=== PATIENT | male | born 1980 | race Caucasian/White ===

== ENCOUNTER 2016-11-22 10:28 | Emergency (ER) | payer SELFPAY ==
[~2016-11-22] VITALS: Ht 180.3 cm; Wt 75.0 kg
[~2016-11-22 10:28] MED LIST: IBUP-238 PO; Z.0.NO CURRENT MEDS
[2016-11-22 10:30] VITALS: BP 195/82; PULSE 101; RESP 22; TEMP 98; O2SAT 98
--- NOTE | 2016-11-22 11:07 | PD ---
Physical Exam Time Seen by Provider: 11:06 Narrative 35 y/o male here with 2 days left testicle pain, swelling. Vital signs reviewed. Seen at triage desk. Awaiting bed placement. Data Data Last Documented VS Vital Signs Date Time Temp Pulse Resp B/P Pulse Ox O2 Delivery O2 Flow Rate FiO2 11/22/16 10:30 98.0 101 22 195/82 98 MDM Medical Record Reviewed: Yes Supervised Visit with ODELL: No Anthony Tinsley Nov 22, 2016 11:06
[2016-11-22] MEDS ORDERED: oxyCODONE/ACETAMINOPHEN 5 MG/325 MG TAB PO ONE (13:45)
[2016-11-22] MEDS ORDERED: ONDANSETRON ODT 4 MG TAB PO/SL ONE (13:45)
--- NOTE | 2016-11-22 13:56 | PD ---
HPI Chief Complaint: Complaint Time Seen by Provider: 13:44 Travel History International Travel<30 days: No Contact w/Intl Traveler<30days: No Traveled to known affect area: No History of Present Illness HPI 35 YO male presents to the ED for evaluation of two day history of left sided scrotal pain. Patient states the pain was mild yesterday evening, worsened today and accompanied by redness and swelling of the scrotum. Patient states that the pain radiates in the abdomen. No relieving or exacerbating factors reported. He denies fever, chills, nausea, vomiting, penile discharge, dysuria , back pain, acute injury. Denies history of testicular torsion. States that he has not been sexually active in approximately one year. No treatment at home. PFSH Past Medical History Diminished Hearing: No Immunizations Current: Yes Past Surgical History Other Surgery: Yes (NASAL SURG- RIGHT HAND- LEFT FOOT) Social History Alcohol Use: Yes (2-12 PACK A WEEK) Tobacco Use: Yes (1 PACK A DAY FOR 16 YEARS) Substance Use: No Allergies-Medications (Allergen,Severity, Reaction): Coded Allergies: No Known Allergies (Verified , 11/22/16) Reported Meds & Prescriptions Reported Meds & Active Scripts Active Tramadol (Tramadol HCl) 50 Mg Tab 50 Mg PO Q6H PRN Ibuprofen 600 Mg Tab 600 Mg PO Q8HR PRN Cipro (Ciprofloxacin HCl) 500 Mg Tab 500 Mg PO BID 10 Days Review of Systems Except as stated in HPI: all other systems reviewed are Neg Physical Exam Narrative GENERAL: Well-nourished, well-developed thin white male in no acute distress. SKIN: Focused skin assessment warm/dry. Tanned, tattooed. HEAD: Normocephalic. EYES: No scleral icterus. No injection or drainage. NECK: Supple, trachea midline. No JVD or lymphadenopathy. CARDIOVASCULAR: Regular rate and rhythm without murmurs, gallops, or rubs. RESPIRATORY: Breath sounds equal bilaterally. No accessory muscle use. GASTROINTESTINAL: Abdomen soft, non-tender, nondistended. MUSCULOSKELETAL: No cyanosis, or edema. GENITOURINARY: Circumcised. Testes descended bilaterally without evidence of rotation. No lesions or erythema. No urethral discharge. Cremasteric reflex absent on the left. Left testicle low riding as compared to the right. Palpation of the testicle elicits pain, especially of the epididymis. BACK: Nontender without obvious deformity. No CVA tenderness. Data Data Last Documented VS Vital Signs Date Time Temp Pulse Resp B/P Pulse Ox O2 Delivery O2 Flow Rate FiO2 11/22/16 17:54 84 16 158/77 99 11/22/16 14:00 Room Air 11/22/16 10:30 98.0 Orders Urinalysis - C+S If Indicated (11/22/16 13:41) Gc And Chlamydia Pcr (11/22/16 13:41) Us Testicles W Doppler (11/22/16 13:41) Oxycodone-Acetamin 5-325 Mg (Percocet (11/22/16 13:45) Ondansetron Odt (Zofran Odt) (11/22/16 13:45) Urine Culture (11/22/16 16:00) Mandatory Outpatient Referral (11/22/16 17:57) Labs Laboratory Tests Test 11/22/16 16:00 Urine Color YELLOW Urine Turbidity CLEAR Urine pH 6.5 Urine Specific [place] 1.005 Urine Protein NEG mg/dL Urine Glucose (UA) NEG mg/dL Urine Ketones NEG mg/dL Urine Occult Blood TRACE Urine Nitrite NEG Urine Bilirubin NEG Urine Urobilinogen LESS THAN 2.0 MG/DL Urine Leukocyte Esterase LARGE Urine RBC 2 /hpf Urine WBC 34 /hpf Microscopic Urinalysis Comment CULTURE INDICATED Chlamydia trachomatis DNA DETECTED (PCR) Neisseria gonorrhoeae DNA NOT DETECTED (PCR) MDM Medical Decision Making Medical Screen Exam Complete: Yes Emergency Medical Condition: Yes Differential Diagnosis Testicular torsion versus inguinal hernia versus epididymitis versus hydrocele versus varicocele versus other Narrative Course 35 YO male presents to the ED for evaluation of two day history of left sided scrotal pain. Patient states the pain was mild yesterday evening, worsened today and accompanied by redness and swelling of the scrotum, radiates to the abdomen. He denies fever, chills, nausea, vomiting, penile discharge, dysuria, back pain, acute injury, history of testicular torsion. States that he has not been sexually active in approximately one year. Vitals reviewed. Physical exam reveals a nontoxic-appearing white male in no acute distress. The left side of the scrotum is erythematous and edematous. The testicle is tender in the area of the epididymis. UA with trace blood, large leukocyte esterase, 34 wbc's. Ultrasound reveals small bilateral epididymal cysts, and small bilateral hydroceles. I discussed the potential for epididymitis with the patient. He adamantly denies any sexual activity within a year, maybe more." Serology is pending. I offered him empiric treatment for gonorrhea and Chlamydia but he declined. Will treat for epididymitis with the enteric pathogens. Patient was prescribed ciprofloxacin 500 mg twice a day 10 days, tramadol and ibuprofen. He is instructed to take the antibiotics as prescribed , even if symptoms resolve. Pituitary outpatient consult was placed with urology. I discussed this process with the patient who indicated understanding. He is stable and discharged home. Diagnosis Primary Impression: Testicular pain, left Additional Impression: UTI (urinary tract infection) Qualified Code: N39.0 - Urinary tract infection without hematuria, site unspecified Referrals: Mart Montejo MD Patient Instructions: Epididymitis (ED), General Instructions Additional Instructions: Rest, hydrate. Rest, scrotal support, ice packs may help to improve your pain. Take antibiotics as prescribed, even if your symptoms resolve. 800 mg ibuprofen for pain 1-6. Tramadol for pain greater than 6. [address] while taking tramadol. Follow-up with Dr. Shaw this week. Return to the ED for worsening symptoms or any urgent or emergent medical condition. Med/Other Pt SpecificInfo: Prescription(s) given Scripts Tramadol 50 Mg Tab50 Mg PO Q6H PRN (PAIN) #15 TAB Ref 0 Prov:Maximino Pitt MD 11/22/16 Ibuprofen 600 Mg Rad068 Mg PO Q8HR PRN (PAIN) #15 TAB Ref 0 Prov:Alissa Durham DO 11/22/16 Ciprofloxacin (Cipro)500 Mg [id number] Mg PO BID 10 Days Ref 0 Prov:Alissa Durham DO 11/22/16 Disposition: 01 DISCHARGE HOME Condition: Stable Gracia Sandhu Nov 22, 2016 13:56
[2016-11-22 14:00] VITALS: BP 162/78; PULSE 87; RESP 16; O2SAT 99
--- NOTE | 2016-11-22 15:19 | RADRPT ---
EXAM DATE/TIME: 11/22/2016 13:56 [facility] COMPARISON: No previous studies available for comparison. INDICATIONS : Left testicular pain and swelling. MEDICAL HISTORY : Scrotal pain and swelling. SURGICAL HISTORY : Nasal surgery. Right hand surgery. Left foot surgery. ENCOUNTER: Initial ACUITY: 2 days PAIN SCORE: 4/10 LOCATION: Bilateral scrotum. MEASUREMENTS: RIGHT TESTICLE: 4.1 x 3.4 x 1.9 cm LEFT TESTICLE: 4.0 x 2.9 x 2.2cm FINDINGS: RIGHT TESTICLE: Homogeneous echotexture without intra or extratesticular mass. Blood flow is symmetric and within no rmal limits. There is a 3 mm cyst in the epididymal head. There is a small hydrocele on the right abraham e. No definite varicocele.. LEFT TESTICLE: Homogeneous echotexture without intra or extratesticular mass. Blood flow is symmetric and within no rmal limits. There is a 2 mm cyst in the epidural head. There is a 3 mm cyst in the epididymal head. Small density adjacent to the epididymal head suggestive of an appendix epididymis. There is a modera te hydrocele. No definite varicocele. SCROTUM: Within normal limits. CONCLUSION: 1. The testicles are both within normal limits. 2. There are bilateral epididymal cysts, left greater than right. 3. Small right hydrocele. 4. Moderate left hydrocele. Charan Forrest MD on November 22, 2016 at 15:13 Board Certified Radiologist. This report was verified electronically.
[2016-11-22 16:22] LABS: BLOOD, URINE TRACE (NEG); COMMENT (UR) CULTURE INDICATED; CULTURE IF INDICATED CULTURE INDICATED; GLUCOSE,URINE NEG (NEG); KETONE, URINE NEG (NEG); NITRITE,URINE NEG (NEG); PH, URINE 6.5 (5.0-8.5); URINE COLOR YELLOW (YELLW/STRAW)
[2016-11-22] MEDS ORDERED: TRAM50TA PO ×2 (17:28→17:32)
[2016-11-22] MEDS ORDERED: CIPR-9 PO (17:28)
[2016-11-22] MEDS ORDERED: IBUP-232 PO (17:31)
[2016-11-22 17:54] VITALS: BP 158/77
[2016-11-22 19:18] LABS: CHLAMYDIA PCR DETECTED (NOT DETECT); NEISSERIA PCR NOT DETECTED (NOT DETECT)
== END 2016-11-22 18:03 | disposition home or self-care (01) ==
LOC: NEPD 10:28
DX: N50.812 Left testicular pain (principal); N39.0 Urinary tract infection, site not specified; N50.3 Cyst of epididymis; N43.3 Hydrocele, unspecified; F17.200 Nicotine dependence, unspecified, uncomplicated
CPT/HCPCS: 76870; 81001; 87086; 87491; 87591; 93975; 99284